=== PATIENT | female | born 1990 | race Caucasian/White ===

== ENCOUNTER 2016-07-22 15:44 | Emergency (ER) | payer SELFPAY ==
[~2016-07-22] VITALS: Wt 76.5 kg
[~2016-07-22 15:44] MED LIST: CARI350T PO; CYCL-319 PO; DICL50TA11 PO; HYDR-3498 PO; HYDR-762 PO; HYDR-906 PO; IBUP-1542 PO; MED4DP PO; NAPR-260 PO; NITR-58 PO; OMEP20CA16 PO; ONDA4TAB35 PO; UDROBDM PO
== END 2016-07-22 20:42 | disposition left against medical advice (07) ==
LOC: FTE 15:44
DX: Z53.21 Procedure and treatment not carried out due to patient leaving prior to being seen by health care provider (principal)

== ENCOUNTER 2016-11-16 13:35 | Emergency (ER) | payer OTHER ==
[~2016-11-16] VITALS: Ht 152.4 cm; Wt 71.0 kg
[2016-11-16 13:39] VITALS: Ht 152.4 cm; Wt 71.0 kg
[2016-11-16] MEDS ORDERED: ONDANSETRON 4 MG INJ IV STA (15:24)
[2016-11-16] MEDS ORDERED: FAMOTIDINE 20 MG INJ IV STA (15:24)
[2016-11-16] MEDS ORDERED: SOD CHLORIDE 0.9% 1,000 ML IV STA (15:24)
--- NOTE | 2016-11-16 16:08 | RADRPT ---
PROCEDURE: Right Upper Quadrant Ultrasound. CLINICAL INDICATION: right upper quadrant pain s/p cholesectomy TECHNIQUE: Multiple real-time images were acquired of the patient's right upper quadrant abdomen a nd retroperitoneum utilizing a high resolution transducer. COMPARISON: None FINDINGS: The liver measures 18.8 cm, and demonstrates diffusely increased echogenicity. The main portal vein is patent with proper directional flow. There is no intrahepatic biliary ductal dilatation. The extr ahepatic common bile duct measures 4 mm. The gallbladder is absent. The visualized pancreas is unremarkable. The right kidney measures 10.0 cm and demonstrates normal echotexture. There is no right renal calcu kiley or hydronephrosis. The visualized abdominal aorta and IVC are grossly unremarkable. IMPRESSION: Hepatomegaly with severe fatty infiltration. Status post cholecystectomy. Normal CBD. RPTAT: EE Physician Gigi Date Time Electronically viewed and signed by Physician Gigi on 11/16/2016 16:08 /
[2016-11-16 16:09] LABS: ADD SCAN DIFF NO
[2016-11-16 16:11] LABS: BASOPHILS % 0.4 % (0.0-2.0); EOSINOPHILS % 0.1 % (0.0-7.0); HEMATOCRIT 42.4 % (37.0-47.0); HEMOGLOBIN 14.4 g/dl (12.0-16.0); LYMPHOCYTES # 0.8 10^3/ul (0.8-2.9); MEAN CORPUSCULAR HEMOGLOBIN 28.1 pg (29.0-33.0); MEAN CORPUSCULAR VOLUME 82.7 fl (82.0-101.0); MEAN PLATELET VOLUME 10.5 fl (7.4-10.4); MONOCYTE # 0.2 10^3/ul (0.3-0.9); MONOCYTES % 2.3 % (0.0-11.0); NEUTROPHIL # 6.3 10^3/ul (1.6-7.5); NEUTROPHILS % 85.8 % (39.0-77.0); PLATELET COUNT 324 10^3/UL (140-415); RED BLOOD COUNT 5.13 10^6/ul (4.20-5.40); RED CELL DISTRIBUTION WIDTH 13.4 % (11.5-14.5); WHITE BLOOD COUNT 7.4 10^3/ul (4.8-10.8)
[2016-11-16 16:47] LABS: ALBUMIN 5.1 g/dl (3.3-4.9); ALBUMIN/GLOBULIN RATIO 1.64; BILIRUBIN,INDIRECT 0.4 mg/dl (0-1.1); BILIRUBIN,TOTAL 0.4 mg/dl (0.2-1.3); CALCIUM 9.6 mg/dl (8.4-10.2); CREATININE 0.7 mg/dl (0.44-1.00); POTASSIUM 4.5 mmol/L (3.5-5.1); TOTAL PROTEIN 8.2 g/dl (6.1-8.1)
[2016-11-16 18:06] LABS: ADD UMIC YES; UR BILIRUBIN (Dip) NEGATIVE (NEGATIVE); UR BLOOD (Dip) TRACE (NEGATIVE); UR CLARITY CLEAR (CLEAR); UR COLOR LT. YELLOW (YELLOW); UR GLUCOSE (Dip) NEGATIVE (NEGATIVE); UR KETONES (Dip) NEGATIVE (NEGATIVE); UR LEUKOCYTE ESTERASE (Dip) NEGATIVE (NEGATIVE); UR NITRITE (Dip) NEGATIVE (NEGATIVE); UR TOTAL PROTEIN (Dip) NEGATIVE (NEGATIVE); UR UROBILINOGEN (Dip) 0.2 E.U./dL (0.1-1.0)
[2016-11-16 18:12] LABS: UR BACTERIA RARE
[2016-11-16] MEDS ORDERED: KETOROLAC 30 MG INJ IV STA (18:23)
[2016-11-16] MEDS ORDERED: ONDA4TAB14 PO (19:13)
[2016-11-16] MEDS ORDERED: FAMO-18 PO (19:13)
[2016-11-16] MEDS ORDERED: ACET500C5 PO (19:13)
[2016-11-16 19:28] VITALS: BP 101/55; PULSE 75; RESP 18; TEMP 98.2
--- NOTE | 2016-11-16 19:33 | ERD ---
ER Documentation Chief Complaint Date/Time DATE: 11/16/16 TIME: 19:29 Chief Complaint ap today HPI 26-year-old female patient with a previous history of status post cholecystectomy 5 years ago presents to the ED complaining of slight epigastric and right upper quadrant pain and right-sided flank pain that started earlier today. Reports that she has some nausea and vomiting. States that she has had a few episodes of nonbilious nonbloody vomiting. States that her last menses was sometime last month. Denies any chest pain, shortness of breath, wheezing, cough, fever, chills. Reports that she has normal daily bowel movements. Denies any heavy lifting or injuries. ROS All systems reviewed and are negative except as per history of present illness. Medications Home Meds Active Scripts Famotidine* (Pepcid*) 20 Mg Tablet, 20 MG PO BID, #20 TAB Prov:NAGI ALVAREZ PA-C 11/16/16 Ondansetron (Ondansetron Odt) 4 Mg Tab.rapdis, 4 MG PO Q6H Y for NAUSEA AND/OR VOMITING, #10 TAB Prov:NAGI ALVAREZ PA-C 11/16/16 Naproxen* (Naprosyn*) 500 Mg Tablet, 500 MG PO BID Y for PAIN AND/OR INFLAMMATION, #30 TAB Prov:CHANNING KEITH PA-C 10/23/15 Cyclobenzaprine Hcl* (Cyclobenzaprine Hcl*) 10 Mg Tablet, 10 MG PO TID, #15 TAB Prov:CHANNING KEITH PA-C 10/23/15 Methylprednisolone* (Medrol* DOSE PACK) 4 Mg/Dose-Pack Tab.ds.pk, 4 MG PO . DIRECTED, #1 PACKET Prov:CHANNING KEITH PA-C 10/23/15 Ibuprofen* (Motrin*) 600 Mg Tab, 600 MG PO Q6, #20 TAB Prov:RAGHAV EVANS PA-C 10/07/15 Hydrocodone Bit-Acetaminophen* ([place]*) 10-325 Mg Tablet, 1 TAB PO Q6 Y for PAIN , #10 TAB Prov:RAGHAV EVANS PA-C 10/07/15 Guaifenesin-Dextromethorphan* (Robitussin* DM) 100MG/10MG/5ML Syrup, 5 ML PO Q6H Y for COUGH, #120 ML Prov:AALIYAH MURRAY DO 04/30/15 Diclofenac Sodium* (Diclofenac Sodium*) 50 Mg Tablet.dr, 50 MG PO TID, #14 TAB Prov:AALIYAH MURRAY DO 04/30/15 Hydrocodone Bit-Acetaminophen* ([place]*) 5-325 Mg Tab, 1 TAB PO Q6 Y for PAIN, # 7 TAB Prov:JUAN MANUEL MURRAYRAM DO 04/30/15 Ondansetron Hcl* (Zofran* ODT) 4 mg -ODT Tab.disper, 4 MG PO Q6 Y for NAUSEA AND /OR VOMITING, #5 TAB Prov:LORAINE ASIF M. 11/09/14 Hydrocodone Bit-Acetaminophen* ([place]*) 5-325 Mg Tab, 1 TAB PO Q6 Y for PAIN, # 5 TAB Prov:LORAINE ASIF M. 11/09/14 Nitrofurantoin Monohyd Macrocr* (Macrobid*) 100 Mg Capsr, 100 MG PO BID for 5 Days, CAP Prov:LORAINE ASIF M. 11/09/14 Omeprazole* (Omeprazole*) 20 Mg Capsule., 20 MG PO DAILY, #30 CAP Prov:LORAINE ASIF M. 11/09/14 Reported Medications Hydrocodone Bit-Acetaminophen ([place]) 1 Tab Tablet, 1 TAB PO PRN 07/20/12 Carisoprodol* (Soma*) 350 Mg Tablet, 350 MG PO PRN 07/20/12 [None] No Conflict Check 02/01/11 Allergies Allergies: Coded Allergies: No Known Allergy (Unverified , 04/30/15) PMhx/Soc History of Surgery: Yes (cholecystectomy) Anesthesia Reaction: No Hx Neurological Disorder: No Hx Respiratory Disorders: No Hx Cardiac Disorders: No Hx Psychiatric Problems: No Hx Miscellaneous Medical Probl: Yes (gallstones) Hx Alcohol Use: No Hx Substance Use: No Hx Tobacco Use: No Smoking Status: Never smoker Physical Exam Vitals Vital Signs Date Time Temp Pulse Resp B/P Pulse Ox O2 Delivery O2 Flow Rate FiO2 11/16/16 19:28 98.2 75 18 101/55 99 Room Air 11/16/16 13:39 97.7 97 18 124/87 99 Physical Exam Const: [id number]-[id number], well-nourished. In no acute distress. Head: Atraumatic, normocephalic Eyes: Normal Conjunctiva without injection. No purulent discharge. ENT: Normal external ear, nose. Moist oropharynx without tonsillar exudates. Non -erythematous pharynx. Uvula midline. No drooling. No trismus. Neck: No cervical midline tenderness. Full range of motion. No meningismus. No cervical lymphadenopathy. No JVD. Resp: Clear to auscultation bilaterally. No wheezing, rhonchi, rales, or crackles. No accessory muscle use. No retractions. Cardio: Regular rate and rhythm. No murmurs, rubs or gallops. Abd: Soft, right upper quadrant pain, non distended. Normal bowel sounds. No palpable masses. No rebound tenderness. No guarding. Negative McBurney's point. Negative psoas sign. Negative obturator sign. Skin: No petechiae or rashes Back: No midline tenderness. No CVA tenderness. Ext: No cyanosis, or edema. Neur: Awake and alert. Normal gait. Normal coordination. Psych: Normal Mood and Affect Result Diagram: 11/16/16 1601 11/16/16 1601 Results 24 hrs Laboratory Tests Test 11/16/16 16:01 11/16/16 17:47 White Blood Count 7.410^3/ul Red Blood Count 5.1310^6/ul Hemoglobin 14.4g/dl Hematocrit 42.4% Mean Corpuscular Volume 82.7fl Mean Corpuscular Hemoglobin 28.1pg Mean Corpuscular Hemoglobin Concent 34.0g/dl Red Cell Distribution Width 13.4% Platelet Count 16958^3/UL Mean Platelet Volume 10.5fl Neutrophils % 85.8% Lymphocytes % 11.0% Monocytes % 2.3% Eosinophils % 0.1% Basophils % 0.4% Nucleated Red Blood Cells % 0.0/100WBC Neutrophils # 6.310^3/ul Lymphocytes # 0.810^3/ul Monocytes # 0.210^3/ul Eosinophils # 0.010^3/ul Basophils # 0.010^3/ul Nucleated Red Blood Cells # 0.010^3/ul Sodium Level 146mmol/L Potassium Level 4.5mmol/L Chloride Level 107mmol/L Carbon Dioxide Level 26mmol/L Anion Gap 18 Blood Urea Nitrogen 12mg/dl Creatinine 0.70mg/dl Glucose Level 117mg/dl Calcium Level 9.6mg/dl Total Bilirubin 0.4mg/dl Direct Bilirubin 0.00mg/dl Indirect Bilirubin 0.4mg/dl Aspartate Amino Transf (AST/SGOT) 81IU/L Alanine Aminotransferase (ALT/SGPT) 131IU/L Alkaline Phosphatase 66IU/L Total Protein 8.2g/dl Albumin 5.1g/dl Globulin 3.10g/dl Albumin/Globulin Ratio 1.64 Lipase 26U/L Urine Color LT. YELLOW Urine Clarity CLEAR Urine pH 7.0 Urine Specific [place] 1.015 Urine Ketones NEGATIVE Urine Nitrite NEGATIVE Urine Bilirubin NEGATIVE Urine Urobilinogen 0.2 E.U./dL Urine Leukocyte Esterase NEGATIVE Urine Microscopic RBC 2-5/HPF Urine Microscopic WBC 0-2/HPF Urine Epithelial Cells OCCASIONAL Urine Bacteria RARE Urine Hemoglobin TRACE Urine Glucose NEGATIVE% Urine Total Protein NEGATIVE Current Medications Medications (Trade) Dose Ordered Sig/Russel Route PRN Reason Start Time Stop Time Status Last Admin Dose Admin Sodium Chloride (NS) 1,000 ml @ 1,000 mls/hr Q1H STAT IV 11/16/16 15:24 11/16/16 16:23 DC 11/16/16 15:52 Ondansetron HCl (Zofran Inj) 4 mg ONCE STAT IV 11/16/16 15:24 11/16/16 15:27 DC 11/16/16 15:53 Famotidine (Pepcid Iv) 20 mg ONCE STAT IV 11/16/16 15:24 11/16/16 15:27 DC 11/16/16 15:52 Ketorolac Tromethamine (Toradol) 30 mg ONCE STAT IV 11/16/16 18:23 11/16/16 18:24 DC 11/16/16 18:38 Procedures/MDM 26-year-old female patient with a status post cholecystectomy presents to the ED complaining of nausea, vomiting, epigastric, right upper quadrant and right flank pain. Patient is afebrile and nontoxic-appearing. Patient has normal vital signs. Patient was further worked up with CBC, CMP, lipase, UA, urine , ultrasound of the abdomen. Patient's pain and symptoms have improved after treatment with 30 mg Toradol, 4 mg IV Zofran, 1 L of normal saline, 20 mg IV famotidine. CBC: No leukocytosis. No e/o of systemic infection. No e/o anemia. CMP: No e/o severe acidosis, alkalosis, renal failure, diabetic ketoacidosis, liver disease Lipase within normal limits. Urine: No leukocyte esterase, no nitrites, no hematuria. Urine : Negative PROCEDURE: Right Upper Quadrant Ultrasound. CLINICAL INDICATION: right upper quadrant pain s/p cholesectomy TECHNIQUE: Multiple real-time images were acquired of the patient's right upper quadrant abdomen and retroperitoneum utilizing a high resolution transducer. COMPARISON: None FINDINGS: The liver measures 18.8 cm, and demonstrates diffusely increased echogenicity. The main portal vein is patent with proper directional flow. There is no intrahepatic biliary ductal dilatation. The extrahepatic common bile duct measures 4 mm. The gallbladder is absent. The visualized pancreas is unremarkable. The right kidney measures 10.0 cm and demonstrates normal echotexture. There is no right renal calculus or hydronephrosis. The visualized abdominal aorta and IVC are grossly unremarkable. IMPRESSION: Hepatomegaly with severe fatty infiltration. Status post cholecystectomy. Normal CBD. Patient reports that her pain has improved. Normal CBD. Low suspicion for gastritis, GERD, peptic ulcer disease, cholecystitis, choledocholithiasis, cholangitis, pancreatitis, appendicitis, bowel obstruction, ileus, volvulus, nephrolithiasis, pyelonephritis, hepatitis, perforated viscus, diverticulitis, abdominal hernia, acute abdomen, mesenteric ischemia or other emergent conditions. Discharge medications: Famotidine, Zofran Follow up with primary care physician in 1-2 days for referral to production leader. Instructed patient to return to the ED sooner for any worsening symptoms. Patient's questions were answered. Patient understood and agreed with discharge plan. Patient discharged stable. Departure Diagnosis: Primary Impression: Abdominal pain Abdominal location: unspecified location Qualified Code: R10.9 - Abdominal pain, unspecified location Additional Impression: Flank pain Condition: Stable Patient Instructions: Abdominal Pain, Flank Pain, Uncertain Cause Referrals: COMMUNITY CLINICS YOU HAVE RECEIVED A MEDICAL SCREENING EXAM AND THE RESULTS INDICATE THAT YOU DO NOT HAVE A CONDITION THAT REQUIRES URGENT TREATMENT IN THE EMERGENCY DEPARTMENT. FURTHER EVALUATION AND TREATMENT OF YOUR CONDITION CAN WAIT UNTIL YOU ARE SEEN IN YOUR DOCTORS OFFICE WITHIN THE NEXT 1-2 DAYS. IT IS YOUR RESPONSIBILITY TO MAKE AN APPOINTMENT FOR FOLOW-UP CARE. IF YOU HAVE A PRIMARY DOCTOR --you should call your primary doctor and schedule an appointment IF YOU DO NOT HAVE A PRIMARY DOCTOR YOU CAN CALL OUR PHYSICIAN REFERRAL HOTLINE AT IF YOU CAN NOT AFFORD TO SEE A PHYSICIAN YOU CAN CHOSE FROM THE FOLLOWING [facility] [address] [facility] [address] [facility] [address] [facility] [address] [facility] [address] [facility]. [facility] [address] [facility]. [facility] YOU HAVE RECEIVED A MEDICAL SCREENING EXAM AND THE RESULTS INDICATE THAT YOU DO NOT HAVE A CONDITION THAT REQUIRES URGENT TREATMENT IN THE EMERGENCY DEPARTMENT. FURTHER EVALUATION AND TREATMENT OF YOUR CONDITION CAN WAIT UNTIL YOU ARE SEEN IN YOUR DOCTORS OFFICE WITHIN THE NEXT 1-2 DAYS. IT IS YOUR RESPONSIBILITY TO MAKE AN APPOINTMENT FOR FOLOW-UP CARE. IF YOU HAVE A PRIMARY DOCTOR --you should call your primary doctor and schedule and appointment IF YOU DO NOT HAVE A PRIMARY DOCTOR YOU CAN CALL OUR PHYSICIAN REFERRAL HOTLINE AT . IF YOU CAN NOT AFFORD TO SEE A PHYSICIAN YOU CAN CHOSE FROM THE FOLLOWING [facility]: [facility] [address] [place] [address] [facility] [address] [place] [address] [facility] [address] [place] [address] [facility] Additional Instructions: Call your primary care doctor TOMORROW for an appointment during the next 2-3 days for a referral to see a production leader. See the doctor sooner or return here if your condition worsens before your appointment time. NAGI ALVAREZ PA-C Nov 16, 2016 19:33
== END 2016-11-16 19:29 | disposition home or self-care (01) ==
LOC: FTE 13:35
DX: R10.11 Right upper quadrant pain (principal); R11.2 Nausea with vomiting, unspecified
CPT/HCPCS: 36415; 76705; 80053; 81001; 83690; 85025; 96374; 96375; J1885; J2405; J7030; Z7502; Z7610

== ENCOUNTER 2017-04-27 15:08 | Emergency (ER) | payer OTHER ==
[~2017-04-27] VITALS: Wt 77.3 kg
[~2017-04-27 15:08] MED LIST changes: +FAMO-96 PO; +ONDA4TAB14 PO
[2017-04-27 15:36] LABS: URINE BLOOD (Dip) POC Trace-intact (NEGATIVE)
[2017-04-27 16:00] LABS: BASOPHIL # 0.1 10^3/ul (0.0-0.1); BASOPHILS % 0.5 % (0.0-2.0); EOSINOPHILS # 0.2 10^3/ul (0.0-0.5); EOSINOPHILS % 1.8 % (0.0-7.0); HEMATOCRIT 39.6 % (37.0-47.0); HEMOGLOBIN 13.3 g/dl (12.0-16.0); LYMPHOCYTES # 2.9 10^3/ul (0.8-2.9); LYMPHOCYTES % 29.7 % (15.0-51.0); MEAN CORPUSCULAR HEMOGLOBIN 27.8 pg (29.0-33.0); MEAN CORPUSCULAR HGB CONC 33.6 g/dl (32.0-37.0); MEAN CORPUSCULAR VOLUME 82.7 fl (82.0-101.0); MEAN PLATELET VOLUME 10.3 fl (7.4-10.4); MONOCYTE # 0.4 10^3/ul (0.3-0.9); MONOCYTES % 4.5 % (0.0-11.0); NEUTROPHIL # 6.1 10^3/ul (1.6-7.5); PLATELET COUNT 331 10^3/UL (140-415); RED BLOOD COUNT 4.79 10^6/ul (4.20-5.40); RED CELL DISTRIBUTION WIDTH 13.2 % (11.5-14.5); WHITE BLOOD COUNT 9.6 10^3/ul (4.8-10.8)
[2017-04-27 16:09] LABS: ADD UMIC YES; UR ASCORBIC ACID NEGATIVE (NEGATIVE); UR BACTERIA FEW /HPF (NONE SEEN); UR BILIRUBIN (Dip) NEGATIVE (NEGATIVE); UR BLOOD (Dip) 1+ mg/dL (NEGATIVE); UR CLARITY CLEAR (CLEAR); UR COLOR STRAW (YELLOW); UR GLUCOSE (Dip) NEGATIVE (NEGATIVE); UR KETONES (Dip) NEGATIVE (NEGATIVE); UR LEUKOCYTE ESTERASE (Dip) TRACE Leu/ul (NEGATIVE); UR NITRITE (Dip) NEGATIVE (NEGATIVE); UR RBC 0 /HPF (0-5); UR SQUAMOUS EPITHELIAL CELL FEW /HPF (FEW); UR TOTAL PROTEIN (Dip) NEGATIVE (NEGATIVE); UR UROBILINOGEN (Dip) NEGATIVE (NEGATIVE)
[2017-04-27 16:21] LABS: ALBUMIN 4.4 g/dl (3.3-4.9); ALBUMIN/GLOBULIN RATIO 1.41; BILIRUBIN,INDIRECT 0.4 mg/dl (0-1.1); BILIRUBIN,TOTAL 0.4 mg/dl (0.2-1.3); CALCIUM 9.4 mg/dl (8.4-10.2); CREATININE 0.78 mg/dl (0.44-1.00); POTASSIUM 4.2 mmol/L (3.5-5.1); TOTAL PROTEIN 7.5 g/dl (6.1-8.1)
[2017-04-27 17:21] LABS: THYROID STIMULATING HORMONE 1.22 MIU/L (0.465-4.680)
--- NOTE | 2017-04-27 17:45 | ERD ---
ER Documentation Chief Complaint Chief Complaint nat eye "bumps" HPI 27y/o female patient with no significant medical, presents to the emergency department with [mother] c/o gradual onset of bilateral eyelid erythema and edema that is started 4 days ago. The patient denies blurred vision, no pain no foreign body sensation. No treatment attempted at this time. No history of previous episodes. The patient also complains of progressive hair loss for the last 2 years and she would like her thyroid to be checked. History was given by patient ROS SYSTEMIC symptoms: no fever, chills, no night sweats, no weight loss EYE symptoms: No blurred vision, no eye discharge OTOLARYNGEAL symptoms: No hearing loss. No ear pain, no sore throat CARDIOVASCULAR symptoms: No chest pain or discomfort, no palpitations. PULMONARY symptoms: No dyspnea, no cough, no wheezing. GASTROINTESTINAL symptoms: No abdominal pain, no nausea, no vomiting, no diarrhea MUSCULOSKELETAL symptoms: No arthralgias, no muscle aches. NEUROLOGY symptoms: No confusion, no syncope, no numbness or tingling. SKIN: No rashes Medications Home Meds Active Scripts Polymyxin B Sulfate-TMP* (Polymyxin B-TMP Eye Drops*) 10 Ml Drops, 1 DROP BOTH EYES TID for 5 Days, EA Prov:ROSMERY SYED MD 04/27/17 Famotidine* (Pepcid*) 20 Mg Tablet, 20 MG PO BID, #20 TAB Prov:NAGI ALVAREZ PA-C 11/16/16 Ondansetron (Ondansetron Odt) 4 Mg Tab.rapdis, 4 MG PO Q6H Y for NAUSEA AND/OR VOMITING, #10 TAB Prov:NAGI ALVAREZ PA-C 11/16/16 Naproxen* (Naprosyn*) 500 Mg Tablet, 500 MG PO BID Y for PAIN AND/OR INFLAMMATION, #30 TAB Prov:CHANNING KEITH PA-C 10/23/15 Cyclobenzaprine Hcl* (Cyclobenzaprine Hcl*) 10 Mg Tablet, 10 MG PO TID, #15 TAB Prov:CHANNING KEITH PA-C 10/23/15 Methylprednisolone* (Medrol* DOSE PACK) 4 Mg/Dose-Pack Tab.ds.pk, 4 MG PO . DIRECTED, #1 PACKET Prov:CHANNING KEITH PA-C 10/23/15 Ibuprofen* (Motrin*) 600 Mg Tab, 600 MG PO Q6, #20 TAB Prov:RAGHAV EVANS PA-C 10/07/15 Hydrocodone Bit-Acetaminophen* ([place]*) 10-325 Mg Tablet, 1 TAB PO Q6 Y for PAIN , #10 TAB Prov:RAGHAV EVANS PA-C 10/07/15 Guaifenesin-Dextromethorphan* (Robitussin* DM) 100MG/10MG/5ML Syrup, 5 ML PO Q6H Y for COUGH, #120 ML Prov:TERRI,AALIYAH DO 04/30/15 Diclofenac Sodium* (Diclofenac Sodium*) 50 Mg Tablet.dr, 50 MG PO TID, #14 TAB Prov:[facility] DO 04/30/15 Hydrocodone Bit-Acetaminophen* ([place]*) 5-325 Mg Tab, 1 TAB PO Q6 Y for PAIN, # 7 TAB Prov[facility] 04/30/15 Ondansetron Hcl* (Zofran* ODT) 4 mg -ODT Tab.disper, 4 MG PO Q6 Y for NAUSEA AND /OR VOMITING, #5 TAB Prov:LORAINE ASIF M. 11/09/14 Hydrocodone Bit-Acetaminophen* ([place]*) 5-325 Mg Tab, 1 TAB PO Q6 Y for PAIN, # 5 TAB Prov:LORAINE ASIF M. 11/09/14 Nitrofurantoin Monohyd Macrocr* (Macrobid*) 100 Mg Capsr, 100 MG PO BID for 5 Days, CAP Prov:LORAINE ASIF. 11/09/14 Omeprazole* (Omeprazole*) 20 Mg Capsule.dr, 20 MG PO DAILY, #30 CAP Prov:LORAINE ASIF. 11/09/14 Reported Medications Hydrocodone Bit-Acetaminophen ([place]) 1 Tab Tablet, 1 TAB PO PRN 07/20/12 Carisoprodol* (Soma*) 350 Mg Tablet, 350 MG PO PRN 07/20/12 [None] No Conflict Check 02/01/11 Allergies Allergies: Coded Allergies: No Known Allergy (Unverified , 04/30/15) PMhx/Soc History of Surgery: Yes (cholecystectomy) Anesthesia Reaction: No Hx Neurological Disorder: No Hx Respiratory Disorders: No Hx Cardiac Disorders: No Hx Psychiatric Problems: No Hx Miscellaneous Medical Probl: Yes (gallstones) Hx Alcohol Use: No Hx Substance Use: No Hx Tobacco Use: No FmHx No family history of diabetes, hypertension, coronary artery disease. Physical Exam Vitals Vital Signs Date Time Temp Pulse Resp B/P Pulse Ox O2 Delivery O2 Flow Rate FiO2 04/27/17 15:10 98.0 82 20 123/73 99 Physical Exam Patient is in no acute distress, vital signs stable. Alert and fully oriented. EYES: PERRLA, EOMI, bilateral eyelids with erythema, edema, sclera mildly injected. Normal cornea, no foreign body seen EARS: Canals clear, tympanic membranes WNL THROAT: Normal oropharynx. NECK: Supple, No lymphadenopathy. Full ROM without pain or tenderness. HEART: RRR, no rubs, murmurs, clicks or gallops. LUNGS: Clear to auscultation. ABDOMEN: Soft, non-tender without masses or hepatosplenomegaly. EXTREMITIES: No edema bilaterally. BACK: Full ROM, no deformity, normal back exam NEURO: Cranial nerves grossly intact, no motor or sensory deficit Result Diagram: 04/27/17 1545 04/27/17 1545 Results 24 hrs Laboratory Tests Test 04/27/17 15:35 04/27/17 15:45 Urine Color STRAW Urine Clarity CLEAR Urine pH 6.0 Bedside Urine pH (LAB) 6.0 Urine Specific [place] 1.010 Bedside Urine Protein (LAB) Negative Bedside Urine Glucose (UA) Negative Urine Ketones NEGATIVEmg/dL Bedside Urine Ketones (LAB) Negative Bedside Urine Blood Trace-intact Urine Nitrite NEGATIVEmg/dL Bedside Urine Nitrite (LAB) Negative Urine Bilirubin NEGATIVEmg/dL Urine Urobilinogen NEGATIVEmg/dL Urine Leukocyte Esterase TRACELeu/ul Bedside Urine Leukocyte Esterase (L Trace Urine Microscopic RBC 0/HPF Urine Microscopic WBC 2/HPF Urine Squamous Epithelial Cells FEW/HPF Urine Bacteria FEW/HPF Urine Hemoglobin 1+mg/dL Urine Glucose NEGATIVEmg/dL Urine Total Protein NEGATIVEmg/dl Urine Test NEGATIVE White Blood Count 9.610^3/ul Red Blood Count 4.7910^6/ul Hemoglobin 13.3g/dl Hematocrit 39.6% Mean Corpuscular Volume 82.7fl Mean Corpuscular Hemoglobin 27.8pg Mean Corpuscular Hemoglobin Concent 33.6g/dl Red Cell Distribution Width 13.2% Platelet Count 35311^3/UL Mean Platelet Volume 10.3fl Neutrophils % 63.0% Lymphocytes % 29.7% Monocytes % 4.5% Eosinophils % 1.8% Basophils % 0.5% Nucleated Red Blood Cells % 0.0/100WBC Neutrophils # 6.110^3/ul Lymphocytes # 2.910^3/ul Monocytes # 0.410^3/ul Eosinophils # 0.210^3/ul Basophils # 0.110^3/ul Nucleated Red Blood Cells # 0.010^3/ul Sodium Level 141mmol/L Potassium Level 4.2mmol/L Chloride Level 103mmol/L Carbon Dioxide Level 28mmol/L Anion Gap 14 Blood Urea Nitrogen 10mg/dl Creatinine 0.78mg/dl Glucose Level 107mg/dl Calcium Level 9.4mg/dl Total Bilirubin 0.4mg/dl Direct Bilirubin 0.00mg/dl Indirect Bilirubin 0.4mg/dl Aspartate Amino Transf (AST/SGOT) 25IU/L Alanine Aminotransferase (ALT/SGPT) 55IU/L Alkaline Phosphatase 67IU/L Total Protein 7.5g/dl Albumin 4.4g/dl Globulin 3.10g/dl Albumin/Globulin Ratio 1.41 Thyroid Stimulating Hormone (TSH) 1.220MIU/L Procedures/MDM 27y/o female patient with no medical history, presents to the ED c/o bilateral eye irritation for 5 days and progressive hair loss for 2 years. Vital signs stable, Physical exam unremarkable, except for bilateral eyelid erythema and irritation, no foreign body seen. Differential diagnosis include but not limited to: Conjunctivitis, stye, foreign body. In regards to her alopecia the differential diagnosis includes autoimmune alopecia areata, infectious process like tenia, trichotillomania. Pertinent Data: Labs: CBC: normal, CMP: normal kidney and liver function, normal electrolytes. Thyroid: normal Physical examination and clinical presentation consistent most likely with blepharitis. During the ED course the patient remained stable no new complaints Results and clinical impression discussed with patient who agrees with management. The patient is stable to be treated outpatient and will be discharged home with a Rx for antibiotic ophthalmic and follow-up with her primary doctor The patient was instructed to follow up with the primary care provider in the next 48h. If symptoms persist, worsen or new symptoms develop, then patient should return to the ED immediately. Instructions explained and given to patient in [place] with acknowledgment and demonstrated understanding. Disclaimer: Inadvertent spelling and grammatical errors are likely due to EHR/ dictation software use and do not reflect on the overall quality of patient care. Also, please note that the electronic time recorded on this note does not necessarily reflect the actual time of the patient encounter. Departure Diagnosis: Primary Impression: Blepharitis of both eyes Additional Impression: Alopecia Condition: Stable Additional Instructions: Call your primary care doctor TOMORROW for an appointment during the next 1-2 days. See the doctor sooner or return here if your condition worsens before your appointment time. Thank you very much for allowing us to participate in your care. Your health and safety is our top priority at [facility]. Have prescriptions filled and follow precisely the directions on the label. Follow-up with primary care provider during the next 4 days and bring all the information and medications prescribed. If illness has not improved in 2 days, then make an appointment with primary care provider. If the provider is unavailable, return to the Emergency Department immediately. ROSMERY SYED MD Apr 27, 2017 17:45 ROSMERY SYED MD Apr 27, 2017 17:45
[2017-04-27] MEDS ORDERED: POLY10DR19 BOTH EYES (17:47)
== END 2017-04-27 17:53 | disposition home or self-care (01) ==
LOC: FTE 15:08
DX: H01.003 Unspecified blepharitis right eye, unspecified eyelid (principal); H01.006 Unspecified blepharitis left eye, unspecified eyelid; L65.9 Nonscarring hair loss, unspecified
CPT/HCPCS: 80053; 81001; 81003; 84443; 84703; 85025; Z7502; 99283

== ENCOUNTER 2017-05-05 18:30 | Emergency (ER) | payer OTHER ==
[~2017-05-05] VITALS: Ht 160 cm; Wt 80.3 kg
[~2017-05-05 18:30] MED LIST changes: +POLY10DR19 BOTH EYES
[2017-05-05 18:39] VITALS: Ht 160 cm; Wt 80.3 kg
[2017-05-05] MEDS ORDERED: BENZ100C70 PO (19:09)
[2017-05-05] MEDS ORDERED: UDROBDM PO (19:09)
--- NOTE | 2017-05-05 21:16 | ERD ---
ER Documentation Chief Complaint Chief Complaint dry cough x 9 days HPI 27-year-old female complaining of cough 1 week. Has taken NyQuil and TheraFlu. Has mild runny nose and mild sore throat. Denies productive cough. Denies fever. Denies medical problems. NKDA. Surgical history: Cholecystectomy ROS All systems reviewed and are negative except as per history of present illness. Medications Home Meds Active Scripts Guaifenesin-Dextromethorphan* (Robitussin* DM) 100MG/10MG/5ML Syrup, 5 ML PO Q4H Y for COUGH, #100 ML Prov:CHANNING KEITH PA-C 05/05/17 Benzonatate* (Tessalon Perle*) 100 Mg Capsule, 100 MG PO Q8H Y for COUGH, #30 CAP Prov:CHANNING KEITH PA-C 05/05/17 Polymyxin B Sulfate-TMP* (Polymyxin B-TMP Eye Drops*) 10 Ml Drops, 1 DROP BOTH EYES TID for 5 Days, EA Prov:ROSMERY SYED MD 04/27/17 Famotidine* (Pepcid*) 20 Mg Tablet, 20 MG PO BID, #20 TAB Prov:NAGI ALVAREZ PA-C 11/16/16 Ondansetron (Ondansetron Odt) 4 Mg Tab.rapdis, 4 MG PO Q6H Y for NAUSEA AND/OR VOMITING, #10 TAB Prov:NAGI ALVAREZ PA-C 11/16/16 Naproxen* (Naprosyn*) 500 Mg Tablet, 500 MG PO BID Y for PAIN AND/OR INFLAMMATION, #30 TAB Prov:CHANNING KEITH PA-C 10/23/15 Cyclobenzaprine Hcl* (Cyclobenzaprine Hcl*) 10 Mg Tablet, 10 MG PO TID, #15 TAB Prov:CHANNING KEITH PA-C 10/23/15 Methylprednisolone* (Medrol* DOSE PACK) 4 Mg/Dose-Pack Tab.ds.pk, 4 MG PO . DIRECTED, #1 PACKET Prov:CHANNING KEITH PA-C 10/23/15 Ibuprofen* (Motrin*) 600 Mg Tab, 600 MG PO Q6, #20 TAB Prov:RAGHAV EVANS PA-C 10/07/15 Hydrocodone Bit-Acetaminophen* ([place]*) 10-325 Mg Tablet, 1 TAB PO Q6 Y for PAIN , #10 TAB Prov:RAGHAV EVANS PA-C 10/07/15 Guaifenesin-Dextromethorphan* (Robitussin* DM) 100MG/10MG/5ML Syrup, 5 ML PO Q6H Y for COUGH, #120 ML Prov:TERRI,AALIYAH DO 04/30/15 Diclofenac Sodium* (Diclofenac Sodium*) 50 Mg Tablet.dr, 50 MG PO TID, #14 TAB Prov:TERRI,[facility] 04/30/15 Hydrocodone Bit-Acetaminophen* ([place]*) 5-325 Mg Tab, 1 TAB PO Q6 Y for PAIN, # 7 TAB Prov[facility] 04/30/15 Ondansetron Hcl* (Zofran* ODT) 4 mg -ODT Tab.disper, 4 MG PO Q6 Y for NAUSEA AND /OR VOMITING, #5 TAB Prov:LORAINE ASIF. 11/09/14 Hydrocodone Bit-Acetaminophen* ([place]*) 5-325 Mg Tab, 1 TAB PO Q6 Y for PAIN, # 5 TAB Prov:LORAINE ASIF. 11/09/14 Nitrofurantoin Monohyd Macrocr* (Macrobid*) 100 Mg Capsr, 100 MG PO BID for 5 Days, CAP Prov:LORAINE ASIF. 11/09/14 Omeprazole* (Omeprazole*) 20 Mg Capsule.dr, 20 MG PO DAILY, #30 CAP Prov:LORAINE ASIF. 11/09/14 Reported Medications Hydrocodone Bit-Acetaminophen ([place]) 1 Tab Tablet, 1 TAB PO PRN 07/20/12 Carisoprodol* ([place]*) 350 Mg Tablet, 350 MG PO PRN 07/20/12 [None] No Conflict Check 02/01/11 Allergies Allergies: Coded Allergies: No Known Allergy (Unverified , 04/30/15) PMhx/Soc History of Surgery: Yes (Cholecystectomy) Anesthesia Reaction: No Hx Neurological Disorder: No Hx Respiratory Disorders: No Hx Cardiac Disorders: No Hx Psychiatric Problems: No Hx Miscellaneous Medical Probl: Yes (Gallstones) Hx Alcohol Use: No Hx Substance Use: No Hx Tobacco Use: No Smoking Status: Never smoker Physical Exam Vitals Vital Signs Date Time Temp Pulse Resp B/P Pulse Ox O2 Delivery O2 Flow Rate FiO2 05/05/17 18:39 97.6 82 20 124/79 97 Physical Exam GENERAL: The patient is well-appearing, well-nourished, in no acute distress HEENT: Atraumatic. Conjunctivae are pink. Pupils equal, round, and reactive to light. There is no scleral icterus. Tympanic membranes clear bilaterally. Oropharynx clear. No nystagmus or photophobia. NECK: C-spine is soft and supple. There is no meningismus. There is no cervical lymphadenopathy. CHEST: Clear to auscultation bilaterally. There are no rales, wheezes or rhonchi. HEART: Regular rate and rhythm. No murmurs, clicks, rubs or gallops. No S3 or S4. ABDOMEN:Soft, nontender and nondistended. Good bowel sounds. No rebound or guarding. No gross peritonitis. No gross organomegaly or masses. ss. Procedures/MDM MDM: 27-year-old female complaining of dry cough 9 days. I have low suspicion from cough. I have low suspicion for respiratory distress or hypoxia. I have low suspicion for bacterial HEENT infection. Patient will be discharged with medications and recommended to follow-up with primary care within 1-2 days for close evaluation. Patient is discharged with strict ER precautions. Departure Diagnosis: Primary Impression: Cough Condition: Stable Patient Instructions: Cough, Chronic, Uncertain Cause, (Adult) Referrals: [facility] YOU HAVE RECEIVED A MEDICAL SCREENING EXAM AND THE RESULTS INDICATE THAT YOU DO NOT HAVE A CONDITION THAT REQUIRES URGENT TREATMENT IN THE EMERGENCY DEPARTMENT. FURTHER EVALUATION AND TREATMENT OF YOUR CONDITION CAN WAIT UNTIL YOU ARE SEEN IN YOUR DOCTORS OFFICE WITHIN THE NEXT 1-2 DAYS. IT IS YOUR RESPONSIBILITY TO MAKE AN APPOINTMENT FOR FOLOW-UP CARE. IF YOU HAVE A PRIMARY DOCTOR --you should call your primary doctor and schedule an appointment IF YOU DO NOT HAVE A PRIMARY DOCTOR YOU CAN CALL OUR PHYSICIAN REFERRAL HOTLINE AT IF YOU CAN NOT AFFORD TO SEE A PHYSICIAN YOU CAN CHOSE FROM THE FOLLOWING [facility] CL[facility] [address] [facility] [address] [facility] [address] [facility] [address] [facility] [address] [facility]. [facility] [address] Additional Instructions: FOLLOW UP WITH YOUR PRIMARY CARE PHYSICIAN TOMORROW.Return to this facility if you are not improving as expected. CHANNING KEITH PA-C May 05, 2017 21:16
== END 2017-05-05 22:56 | disposition left against medical advice (07) ==
LOC: FTE 18:30
DX: R05 Cough (principal)
CPT/HCPCS: 99283

== ENCOUNTER 2017-05-20 23:16 | Emergency (ER) | payer SELFPAY ==
[~2017-05-20] VITALS: Ht 162.6 cm; Wt 81.3 kg
[~2017-05-20 23:16] MED LIST changes: +BENZ100C70 PO
[2017-05-20 23:21] VITALS: Ht 162.6 cm; Wt 81.3 kg
== END 2017-05-21 02:39 | disposition left against medical advice (07) ==
LOC: FTE 23:16
DX: Z53.21 Procedure and treatment not carried out due to patient leaving prior to being seen by health care provider (principal)

== ENCOUNTER 2017-06-07 19:09 | Emergency (ER) | END 2017-06-07 21:10 | disposition home or self-care (01) ==

== ENCOUNTER 2017-09-05 13:17 | Emergency (ER) | END 2017-09-05 13:32 | disposition home or self-care (01) ==

== ENCOUNTER 2017-09-08 09:00 | Emergency (ER) | END 2017-09-08 12:42 | disposition left against medical advice (07) ==

== ENCOUNTER 2018-01-12 11:23 | Emergency (ER) | END 2018-01-12 12:31 | disposition home or self-care (01) ==

== ENCOUNTER 2018-01-19 19:02 | Emergency (ER) | END 2018-01-19 20:57 | disposition left against medical advice (07) ==

== ENCOUNTER 2018-03-23 19:00 | Emergency (ER) | END 2018-03-23 23:15 | disposition home or self-care (01) ==

== ENCOUNTER 2018-04-04 18:50 | Emergency (ER) | END 2018-04-04 22:59 | disposition home or self-care (01) ==

== ENCOUNTER 2018-04-29 13:28 | Emergency (ER) | END 2018-04-29 16:04 | disposition home or self-care (01) ==

== ENCOUNTER 2018-05-04 11:28 | Emergency (ER) | END 2018-05-04 13:07 | disposition home or self-care (01) ==

== ENCOUNTER 2018-10-06 19:46 | Emergency (ER) | payer OTHER ==
[~2018-10-06] VITALS: Ht 160 cm; Wt 82.0 kg
[~2018-10-06 19:46] MED LIST changes: +ACET325T33 PO; +ALBU18HF INHALATION; +ALBU8.5H8 INH; +BENZ-6 PO; -BENZ100C70 PO; +CEPH-443 PO; +CETI10CA PO; -CYCL-319 PO; +CYCL10TA7 PO; +D-ME473S2 PO; +DICY10CA40 PO; +DOXY100T21 PO; +FEXO180T13 PO; +GUAI-173 PO; +GUAI-637 PO; +GUAI473L22 PO; +GUAI5SYR2 PO; -NAPR-260 PO; +NAPR-985 PO; +ONDA4TAB8 PO; +PROM5SYR2 PO; -UDROBDM PO
[2018-10-06 19:59] VITALS: BP 139/92; PULSE 91; RESP 19; Ht 160 cm; Wt 82.0 kg
[2018-10-06] MEDS ORDERED: PRED20TA PO (23:17)
--- NOTE | 2018-10-06 23:22 | ERD ---
ER Documentation Chief Complaint Chief Complaint C/O COUGH X6 MONTHS, RT UPPER BACK PAIN X3 WEEKS HPI Is a 28-year-old female who states that in March she was diagnosed with pneumonia and she took antibiotics and made a full recovery however she continues to have cough. Cough is dry and worse in the morning or sometimes when she laughs. She has occasional phlegm. No fever. No hemoptysis. ROS All systems reviewed and are negative except as per history of present illness. Medications Home Meds Active Scripts Prednisone* (Prednisone*) 20 Mg Tab, 60 MG PO DAILY for 5 Days, TAB Prov:MAGNUS BLAKE PA-C 10/06/18 Ibuprofen* (Motrin*) 600 Mg Tab, 600 MG PO Q6H PRN for PAIN AND OR ELEVATED TEMP, #30 TAB Prov:CARLYN OCHOA NP 05/04/18 Guaifenesin* (Robitussin*) 100 Mg/5 Ml Syrup, 200 MG PO Q4H PRN for COUGH, #120 ML Prov:CARLYN OCHOA NP 05/04/18 Albuterol Sulfate* (Ventolin HFA*) 18 Gm Hfa.aer.ad, 2 PUFF INHALATION Q4H, #1 INHALER Dispense with spacer. Please provide instructions for use. Prov:CARLYN OCHOA NP 05/04/18 Benzonatate* (Tessalon Perle*) 100 Mg Capsule, 100 MG PO Q8H PRN for COUGH, #30 CAP Prov:CARLYN OCHOA NP 05/04/18 Ondansetron (Ondansetron Odt) 4 Mg Tab.rapdis, 4 MG PO Q6H PRN for NAUSEA AND/OR VOMITING, #10 TAB Prov:CARLYN OCHOA NP 05/04/18 Promethazine HCl/Codeine (Prometh-Codein 6.25-10 mg/5 ml) 5 Ml Syrup, 5 ML PO QID for 4 Days 4 OZ Prov:JOSE SANDOVAL MD 04/29/18 Albuterol Sulfate* (Ventolin HFA*) 18 Gm Hfa.aer.ad, 2 PUFF INHALATION Q4H, #1 INHALER Prov:JOSE SANDOVAL MD 04/29/18 Doxycycline Monohydrate* (Doxycycline Monohydrate*) 100 Mg Tablet, 100 MG PO BID for 7 Days, TAB Prov:JOSE SANDOVAL MD 04/29/18 Ibuprofen* (Motrin*) 600 Mg Tab, 600 MG PO Q6, #30 TAB Prov:DALIA JENSEN PA-C 04/04/18 Naproxen* (Naprosyn*) 500 Mg Tablet, 500 MG PO BID PRN for PAIN AND/OR INFLAMMATION, #30 TAB Prov:SHREYA FORD PA-C 03/23/18 Albuterol Sulfate* (Proair HFA*) 8.5 Gm Hfa.aer.ad, 2 PUFF INH Q4H PRN for WHEEZING AND SOB, #1 INHALER Prov:ROSMERY SYED MD 01/12/18 Fexofenadine Hcl* (Fexofenadine Hcl*) 180 Mg Tablet, 180 MG PO DAILY, #8 TAB Prov:ROSMERY SYED MD 01/12/18 Dextromethorphan Hb-Promethazine Hcl* (Promethazine DM* Syrup) 473 Ml Syrup, 5 ML PO Q6 PRN for COUGH for 5 Days, #120 ML Prov:ROSMERY SYED MD 01/12/18 Dextromethorphan Hb-Promethazine Hcl* (Promethazine DM* Syrup) 473 Ml Syrup, 5 ML PO Q6 PRN for COUGH, #1 BOT Prov:LINO MARES PA-C 10/20/17 Cetirizine Hcl* (Zyrtec*) 10 Mg Capsule, 10 MG PO DAILY, #10 TAB.CHEW Prov:LINO MARES PA-C 10/20/17 Cephalexin* (Keflex*) 500 Mg Capsule, 500 MG PO BID for 7 Days, CAP Prov:JULISSA GRACIA 09/05/17 Acetaminophen* (Tylenol*) 325 Mg Tablet, 2 TAB PO Q8 PRN for PAIN AND OR ELEVATED TEMP, #20 TAB Prov:JULISSA GRACIA 09/05/17 Guaifenesin* (Tussin*) 100 Mg/5 Ml Syrup, 200 MG PO Q6 PRN for COUGH for 3 Days, ML Prov:JULISSA GRACIA 09/05/17 Famotidine* (Pepcid*) 20 Mg Tablet, 20 MG PO BID for 10 Days, TAB Prov:SAMIAJULISSA Saba 09/05/17 Ondansetron Hcl* (Zofran*) 4 Mg Tablet, 4 MG PO Q6H for NAUSEA AND/OR VOMITING, #30 TAB Prov:JULISSA GRACIA Saba 09/05/17 Ondansetron (Ondansetron Odt) 4 Mg Tab.rapdis, 4 MG PO Q6H PRN for NAUSEA AND/OR VOMITING, #20 TAB Prov:MARVIN VEGAS [employer] 06/07/17 Dicyclomine HCl (Dicyclomine HCl) 10 Mg Capsule, 20 MG PO QID, #30 CAP Prov:MARVIN [facility] [employer] 06/07/17 Ibuprofen* (Motrin*) 600 Mg Tab, 600 MG PO Q6H PRN for PAIN AND OR ELEVATED TEMP, #30 TAB Prov:MARVIN VEGAS NP 06/07/17 Albuterol Sulfate* (Proair HFA*) 8.5 Gm Hfa.aer.ad, 2 PUFF INH Q4H PRN for W HEEZING AND SOB, #1 INHALER Prov:MARVIN VEGAS NP 06/07/17 Cetirizine Hcl* (Zyrtec*) 10 Mg Capsule, 10 MG PO DAILY, #30 TAB.CHEW Prov:MARVIN VEGAS NP 06/07/17 Guaifenesin-Codeine Phosphate* (Guaifenesin* AC Cough Syrup) 473 Ml Liquid, 10 ML PO Q4H PRN for COUGH, #120 ML Prov:MARVIN VEGAS NP 06/07/17 Guaifenesin-Dextromethorphan* (Robitussin* DM) 100MG/10MG/5ML Syrup, 5 ML PO Q4H PRN for COUGH, #100 ML Prov:CHANNING KEITH PA-C 05/05/17 Benzonatate* (Tessalon Perle*) 100 Mg Capsule, 100 MG PO Q8H PRN for COUGH, #30 CAP Prov:CHANNING KEITH PA-C 05/05/17 Polymyxin B Sulfate-TMP* (Polymyxin B-TMP Eye Drops*) 10 Ml Drops, 1 DROP BOTH EYES TID for 5 Days, EA Prov:ROSMERY SYED MD 04/27/17 Famotidine* (Pepcid*) 20 Mg Tablet, 20 MG PO BID, #20 TAB Prov:NAGI ALVAREZ PA-C 11/16/16 Ondansetron (Ondansetron Odt) 4 Mg Tab.rapdis, 4 MG PO Q6H PRN for NAUSEA AND/OR VOMITING, #10 TAB Prov:NAGI ALVAREZ PA-C 11/16/16 Naproxen* (Naprosyn*) 500 Mg Tablet, 500 MG PO BID PRN for PAIN AND/OR INFLAMMATION, #30 TAB Prov:CHANNING KEITH PA-C 10/23/15 Cyclobenzaprine Hcl* (Cyclobenzaprine Hcl*) 10 Mg Tablet, 10 MG PO TID, #15 TAB Prov:CHANNING KEITH PA-C 10/23/15 Methylprednisolone* (Medrol* DOSE PACK) 4 Mg/Dose-Pack Tab.ds.pk, 4 MG PO . DIRECTED, #1 PACKET Prov:CHANNING KEITH PA-C 10/23/15 Ibuprofen* (Motrin*) 600 Mg Tab, 600 MG PO Q6, #20 TAB Prov:RAGHAV EVANS PA-C 10/07/15 Hydrocodone Bit-Acetaminophen* ([place]*) 10-325 Mg Tablet, 1 TAB PO Q6 PRN for PAIN, #10 TAB Prov:RAGHAV EVANS PA-C 10/07/15 Guaifenesin-Dextromethorphan* (Robitussin* DM) 100MG/10MG/5ML Syrup, 5 ML PO Q6H PRN for COUGH, #120 ML Prov:AALIYAH MURRAY DO 04/30/15 Diclofenac Sodium* (Diclofenac Sodium*) 50 Mg Tablet.dr, 50 MG PO TID, #14 TAB Prov:AALIYAH MURRAY DO 04/30/15 Hydrocodone Bit-Acetaminophen* ([place]*) 5-325 Mg Tab, 1 TAB PO Q6 PRN for PAIN, #7 TAB Prov:AALIYAH MURRAY DO 04/30/15 Ondansetron Hcl* (Zofran* ODT) 4 mg -ODT Tab.disper, 4 MG PO Q6 PRN for NAUSEA AND/OR VOMITING, #5 TAB Prov:LORAINE ASIF. 11/09/14 Hydrocodone Bit-Acetaminophen* ([place]*) 5-325 Mg Tab, 1 TAB PO Q6 PRN for PAIN, #5 TAB Prov:LORAINE ASIF M. 11/09/14 Nitrofurantoin Monohyd Macrocr* (Macrobid*) 100 Mg Capsr, 100 MG PO BID for 5 Days, CAP Prov:LORAINE ASIF M. 11/09/14 Omeprazole* (Omeprazole*) 20 Mg Capsule.dr, 20 MG PO DAILY, #30 CAP Prov:LORAINE ASIF . 11/09/14 Reported Medications Hydrocodone Bit-Acetaminophen ([place]) 1 Tab Tablet, 1 TAB PO PRN 07/20/12 Carisoprodol* ([place]*) 350 Mg Tablet, 350 MG PO PRN 07/20/12 [None] No Conflict Check 02/01/11 Allergies Allergies: Coded Allergies: No Known Allergy (Unverified , 01/12/18) PMhx/Soc History of Surgery: Yes (Cholecystectomy) Anesthesia Reaction: No Hx Neurological Disorder: No Hx Respiratory Disorders: Yes (asthma) Hx Cardiac Disorders: No Hx Psychiatric Problems: No Hx Miscellaneous Medical Probl: Yes (Gallstones) Hx Alcohol Use: Yes (sometimes) Hx Substance Use: No Hx Tobacco Use: No Smoking Status: Never smoker FmHx Family History: No diabetes Physical Exam Vitals Vital Signs Date Temp Pulse Resp B/P (MAP) Pulse Ox O2 O2 Flow FiO2 Time Delivery Rate 10/06/18 98.3 91 19 139/92 97 19:59 (108) Physical Exam Const: No acute distress Head: Atraumatic Eyes: Normal Conjunctiva ENT: Normal External Ears, Nose and Mouth. Neck: Full range of motion. No meningismus. Resp: Clear to auscultation bilaterally Cardio: Regular rate and rhythm, no murmurs Procedures/MDM Patient has chronic cough after having pneumonia in March. Her lungs are clear she is afebrile she is well-appearing. I offered to redo a chest x-ray but she declined. Low suspicion for pneumonia still. Patient given presc ription for short course of prednisone. Patient counseled regarding my diagnostic impression and care plan. Prior to discharge all questions answered. Pt agrees with treatment plan and understands strict return precautions. Pt is instructed to follow up with primary care provider within 24-48 hours. Precautionary instructions provided including instructions to return to the ER if not improving or for any worsening or changing symptoms or concerns. Departure Diagnosis: Primary Impression: Chronic cough Condition: Stable Patient Instructions: Cough, Chronic, Uncertain Cause, (Adult) Additional Instructions: Call your primary care doctor TOMORROW for an appointment during the next 1-2 days.See the doctor sooner or return here if your condition worsens before your appointment time. MAGNUS BLAKE PA-C October 06, 2018 23:22
== END 2018-10-07 01:30 | disposition left against medical advice (07) ==
LOC: FTE 19:46
DX: R05 Cough (principal); J45.909 Unspecified asthma, uncomplicated
CPT/HCPCS: 99283